=== PATIENT | male | born 1935 | race Caucasian/White ===

== ENCOUNTER 2018-06-27 10:54 | Emergency (ER) | payer MEDICARE, SELFPAY ==
[2018-06-27 10:59] VITALS: BP 178/68; PULSE 59; RESP 17; TEMP 36.7; O2SAT 96; BMI 30.6
--- NOTE | 2018-06-27 11:11 | EKG12_ITS ---
Test Reason : FALL Blood Pressure : / mmHG Vent. Rate : 058 BPM Atrial Rate : 058 BPM P-R Int : 188 ms QRS Dur : 094 ms QT Int : 434 ms P-R-T Axes : 001 053 091 degrees QTc Int : 426 ms Sinus bradycardia Minimal voltage criteria for LVH, may be normal variant Septal infarct , age undetermined Abnormal ECG Confirmed by BLAIR MILLAN, RUBEN ([id number]), visual effects editor JONY CARBONE ([id number]) on 07/02/2018 2:48:02 PM Referred By: MYRA Confirmed By:RUBEN PINTO MD
--- NOTE | 2018-06-27 11:11 | CT_ITS ---
STUDY: CT BRAIN WITHOUT CONTRAST REASON FOR EXAM: Male, 82 years old. Fall, pain RADIATION DOSAGE (If Supplied By Facility): CTDIvol = ( 44.99 ) mGy, DLP = ( 812.98 ) mGycm TECHNIQUE: Transaxial CT imaging of the brain was performed without administration of intravenous contrast material. Individualized dose optimization techniques were used for this CT. COMPARISON: November 22, 2016 FINDINGS: Ventricles: Moderate cerebral atrophy with widening of the extra-axial spaces and ventricular dilatation. White matter and Cortex: Stable scattered areas of decreased attenuation within the white matter tracts of the supratentorial brain, likely microvascular changes. There is stable encephalomalacia in the right frontal and parietal lobes consistent with old ischemia. Basal ganglia and Thalami: Normal in appearance. Brainstem: Normal in appearance. Cerebellum: Normal in appearance. Vascular: Moderate vascular calcifications. No evidence of acute hemorrhage. No evidence of acute ischemia. No evidence of mass effect. Soft tissues: Minimal soft tissue swelling and air above the orbits. Bones: Unremarkable. Sinuses: Benign retention cyst in the right frontal sinus. Minimal air in the soft tissues posterior to the maxillary sinuses is likely from intravenous injection. There is also seen in the venous structures of the cavernous sinuses. A smooth lucency in the posterolateral left orbital wall appears old. CT/Brain/Head without Contrast IMPRESSION: No acute intracranial abnormalities. Stable chronic findings. There is minimal soft tissue swelling and air above the orbits without underlying fracture. Electronically Signed: Brynn Boucher MD at 12:23 EST , Service support ,
--- NOTE | 2018-06-27 11:11 | RAD_ITS ---
STUDY: X-RAY CHEST REASON FOR EXAM: Male, 82 years old. Pain after fall TECHNIQUE: A single frontal view of the chest was obtained. COMPARISON: November 22, 2016 FINDINGS: Lines and tubes: None. Lungs: Under aerated. Minimal increased markings in both lung bases. Pleura: No demonstrated abnormality. Mediastinum/maegan: Unremarkable. Cardiovascular: Mildly enlarged cardiac silhouette. Sternotomy wires are present. An aortic valve prosthesis is present. Central vascularity unremarkable. Atherosclerotic calcifications in the thoracic aorta. Soft tissues: There are surgical clips in the right lower neck. Bones: Degenerative changes in spine and shoulders. Upper abdomen: No demonstrated abnormality. RAD/Chest 1 View (Portable) IMPRESSION: No acute abnormalities are seen in the chest. No evidence of pleural effusion or pneumothorax. No acute fractures are seen. There is mild enlargement of the cardiac silhouette without pulmonary edema. Electronically Signed: Brynn Boucher MD at 12:13 EST , Service support ,
--- NOTE | 2018-06-27 11:12 | CT_ITS ---
STUDY: CT CERVICAL SPINE WITHOUT CONTRAST REASON FOR EXAM: Male, 82 years old. Unresponsiveness following a fall. RADIATION DOSAGE (If Supplied By Facility): CTDIvol = ( 29.79 ) mGy, DLP = ( 600.66 ) mGycm TECHNIQUE: High resolution transaxial imaging was performed without contrast material. Sagittal and coronal images were reconstructed. Individualized dose optimization techniques were used for this CT. COMPARISON: None FINDINGS: Normal craniovertebral junction. There are degenerative changes of the anterior atlantoaxial articulation. Normal odontoid process. There is straightening of the normal cervical lordosis. Normal vertebral bodies and posterior osseous elements. C2-3: Facet joint osteoarthritis and hypertrophy worse on the right side. Uncovertebral arthrosis. No significant stenosis is seen. C3-4: Uncovertebral arthrosis with facet joint osteoarthritis and hypertrophy. Mild degree of bilateral neural foraminal stenosis. C4-5: Minimal anterior listhesis of C4 on C5. Facet joint osteoarthritis and hypertrophy. Uncovertebral arthrosis. No significant stenosis is seen. C5-6: Marked degree of disc space narrowing. Spondylosis. Uncovertebral arthrosis. Bilateral neural foraminal stenosis worse on the right side. C6-7: Mild degree of disc space narrowing. Atherosclerotic calcification of the carotid arteries bilaterally. CT/Spine Cervical without Contras IMPRESSION: Multilevel degenerative changes, as described above. Electronically Signed: Matt Ferreira MD at 12:28 EST , Service support ,
[2018-06-27 11:40] LABS: Prothrombin Time (Protime)PT. 68.6 SECONDS (11.7-14.9)
[2018-06-27 11:42] LABS: Absolute Lymphocyte Count 0.58 X10^3/ul (0.83-4.51); Absolute Neutrophil Count 2.5 X10^3/uL (2.0-7.7); Basophil# 0.02 X10^3/uL; Basophil% 0.5 % (0-1); Differential Indicated SCAN CRITERIA MET; Eosinophil# 0.06 X10^3/uL; Eosinophils% 1.6 % (0-5); Hematocrit 43.7 % (40-54); Hemoglobin 13.8 g/dl (13.0-16.5); Lymphocyte # 0.58 X10^3/ul (4.0); Lymphocyte % 15.4 % (19-41); Mean Corp Hgb Conc 31.6 g/gl (32-36); Mean Corpuscular Hgb 30.2 pg (27.0-32.0); Mean Corpuscular Volume 95.6 fL (80-94); Mean Platelet Vol. 9.8 fl (6.2-12.0); Monocyte% 15.9 % (0-10); Neutrophil # 2.51 X10^3/uL (2.7-7.7); Neutrophil % 66.6 % (47-70); POSITIVE COUNT NO; POSITIVE DIFFERENTIAL YES; POSITIVE MORPHOLOGY NO; Platelet Count 175 K/mm3 (150-450); RBC Distribution Width CV 14.2 % (11.6-14.6); RBC Distribution Width SD 49.7 fl (35.1-43.9); Red Blood Count 4.57 M/mm3 (4.6-6.2); White Blood Count 3.8 K/mm3 (4.4-11.0)
[2018-06-27 11:48] LABS: International Normalized Ratio 8.1
[2018-06-27] MEDS: 0.9% Normal Saline 1,000 ML 150 ML IV (11:54)
[2018-06-27 11:56] LABS: Anion Gap 6 (5-15); BUN 30 mg/dL (7-18); BUN/Creat Ratio 22.4 RATIO (10-20); Calcium,Total 8.4 mg/dL (8.5-10.1); Chloride 104 mmol/L (98-107); Creatinine, Serum 1.34 mg/dL (0.70-1.30); EST Glomerular Filtration Rate 54 mL/min (>60); Est Glom Filt Rate - Afr Amer 66 mL/min (>60); Estimated Creatinine Clearance 47.45 ml/min; Glucose 165 mg/dL (74-106); Potassium 3.6 mmol/L (3.5-5.1); Sodium Level 140 mmol/L (136-145)
[2018-06-27 11:59] LABS: Differential Comment SCANNED
[2018-06-27 12:11] VITALS: BP 175/66; PULSE 58; RESP 13; O2SAT 99
--- NOTE | 2018-06-27 12:12 | ED.VISSUMM ---
- ER Visit Summary Date of Service: 06/27/18 Chief Complaint: [Falls] History of Present Illness: The patient is a 82 M [presents the emergency department from extended care facility via EMS. Patient apparently has had 2 falls since last evening and both were unwitnessed. Patient has a history of dementia. Patient unable to give me any history. Patient apparently is on Coumadin. Patient also with history of hypertension, prior stroke, high cholesterol, and BPH.] Physical Examination: [HEENT-PERRLA, EOMI. Cranial nerves II through XII grossly intact. TMs clear. Mucous membranes moist. No adenopathy. Patient has a cervical collar in place. Mild diffuse discomfort on palpation of the C-spine. She has 2 areas on the left forehead of ecchymosis and bruising noted. No hematoma. No bony depressions. Cardiovascular-regular rate and rhythm without murmur or ectopy Lungs-clear to auscultation, chest wall stable without crepitus or subcu emphysema Abdomen-normoactive bowel sounds, soft, nontender, no rebound or rigidity, no peritoneal signs. Extremities-intact ?4, normal range of motion, normal pulses, atraumatic] Test Results: [EKG obtained showed a sinus bradycardia with a ventricular rate of 58 bpm with old septal infarct noted. CBC with differential obtained showed a white count of 3.8, hemoglobin 13.8, hematocrit 44, placed 175. Chemistries unremarkable. Glucose is 165. BUN was 30 and creatinine 1.34. INR was elevated 8.1. Troponin was less than 0.015. CT scan of the brain without contrast showed chronic involutional changes without any evidence of hemorrhage. CT of the cervical spine showed degenerative changes but no evidence of fracture.] Emergency Department Course and Treatment: [I discussed case with patient's and also spoke with Dr. Enoch Sheriff who takes care of the patient at the residential. I gave patient 5 mg of vitamin K subcu.] states that patient was on the toilet when he had an unresponsive episode this morning. Treatment Plan: [Patient will be transported back to residential.] Disposition: [Discharged in stable condition] Impression: [Frequent falls Syncope-suspect vasovagal Coumadin coagulopathy Closed head injury] This note was generated with [employer] POSation software. It may contain incorrect words, spelling, and punctuation that were not noted in review of the chart prior to signing ED Disposition - Plan for ED Patient: Chief Complaint: Fall Referrals: Enoch Sheriff MD [Primary Care Provider] -
--- NOTE | 2018-06-27 12:15 | ED.DCSUM_ITS ---
- ER Visit Summary Date of Service: 06/27/18 Chief Complaint: [Falls] History of Present Illness: The patient is a 82 M [presents the emergency department from extended care facility via EMS. Patient apparently has had 2 falls since last evening and both were unwitnessed. Patient has a history of dementia. Patient unable to give me any history. Patient apparently is on Coumadin. Patient also with history of hypertension, prior stroke, high cholesterol, and BPH.] Physical Examination: [HEENT-PERRLA, EOMI. Cranial nerves II through XII grossly intact. TMs clear. Mucous membranes moist. No adenopathy. Patient has a cervical collar in place. Mild diffuse discomfort on palpation of the C- spine. She has 2 areas on the left forehead of ecchymosis and bruising noted. No hematoma. No bony depressions. Cardiovascular-regular rate and rhythm without murmur or ectopy Lungs-clear to auscultation, chest wall stable without crepitus or subcu emphysema Abdomen-normoactive bowel sounds, soft, nontender, no rebound or rigidity, no peritoneal signs. Extremities-intact ?4, normal range of motion, normal pulses, atraumatic] Test Results: [EKG obtained showed a sinus bradycardia with a ventricular rate of 58 bpm with old septal infarct noted. CBC with differential obtained showed a white count of 3.8, hemoglobin 13.8, hematocrit 44, placed 175. Chemistries unremarkable. Glucose is 165. BUN was 30 and creatinine 1.34. INR was elevated 8.1. Troponin was less than 0.015. CT scan of the brain without contrast showed chronic involutional changes without any evidence of hemorrhage. CT of the cervical spine showed degenerative changes but no evidence of fracture.] Emergency Department Course and Treatment: [I discussed case with patient's and also spoke with Dr. Enoch Sheriff who takes care of the patient at the long-term. I gave patient 5 mg of vitamin K subcu.] states that patient was on the toilet when he had an unresponsive episode this morning. Treatment Plan: [Patient will be transported back to long-term.] Disposition: [Discharged in stable condition] Impression: [Frequent falls Syncope-suspect vasovagal Coumadin coagulopathy Closed head injury] This note was generated with cielo[employer]ation software. It may contain incorrect words, spelling, and punctuation that were not noted in review of the chart prior to signing ED Disposition - Plan for ED Patient: Chief Complaint: Fall Referrals: Enoch Sheriff MD [Primary Care Provider] -
--- NOTE | 2018-06-27 12:41 | ED.DEP ---
ED Disposition - Plan for ED Patient: Chief Complaint: Fall Instructions: ED Head Injury Closed, ED Prevention Fall, ED Fainting Unkn Cause Referrals: Enoch Sheriff MD [Primary Care Provider] - 3-5 Days Additional Instructions: Do not take Coumadin until instructed by your doctor
[2018-06-27] MEDS: Phytonadione (Vit K) 10 MG/ML Ampul 5 MG SC (12:46)
--- NOTE | 2018-06-27 12:57 | ED.RN ---
REPORT CALLED TO PRATIK AT [facility].
[2018-06-27 13:17] VITALS: BP 182/64; PULSE 57; RESP 17; O2SAT 98
--- NOTE | 2018-06-27 13:17 | ED.RN ---
IV DC'ED, CATHETER INTACT, SMALL GAUZE DRESSING PLACED. PT TRANSFERRED BACK TO [facility] BY [facility].
== END 2018-06-27 13:18 | disposition home or self-care (01) ==
LOC: ED 11:39
PROVIDERS: Emergency Provider Emergency Medicine; Family Provider Family Medicine; PCP Family Medicine
DX: R55 Syncope and collapse (principal); S00.83XA Contusion of other part of head, initial encounter; W19.XXXA Unspecified fall, initial encounter; Y93.9 Activity, unspecified; Y92.9 Unspecified place or not applicable; Y99.9 Unspecified external cause status; R79.1 Abnormal coagulation profile; T45.515A Adverse effect of anticoagulants, initial encounter; R00.1 Bradycardia, unspecified; I10 Essential (primary) hypertension; E78.00 Pure hypercholesterolemia, unspecified; N40.0 Benign prostatic hyperplasia without lower urinary tract symptoms; F03.90 Unspecified dementia, unspecified severity, without behavioral disturbance, psychotic disturbance, mood disturbance, and anxiety; Z79.82 Long term (current) use of aspirin; Z79.4 Long term (current) use of insulin; Z79.899 Other long term (current) drug therapy; Z79.01 Long term (current) use of anticoagulants; Z86.73 Personal history of transient ischemic attack (TIA), and cerebral infarction without residual deficits
CPT/HCPCS: 70450; 71045; 72125; 80048; 84484; 85025; 85610; 93005; 96360; 96372; 99285; J7030; A4216

== ENCOUNTER 2018-10-11 22:39 | Emergency (ER) | payer MEDICARE, MEDICAID, SELFPAY ==
[2018-10-11 22:41] VITALS: BP 156/60; PULSE 63; TEMP 36.8; O2SAT 97; BMI 31.8
--- NOTE | 2018-10-11 23:06 | RAD_ITS ---
STUDY: X-RAY - RIGHT RADIUS AND ULNA REASON FOR EXAM: Male, 82 years old. Fall, bruising, forearm pain TECHNIQUE: 2 view(s) of the forearm. COMPARISON: None. FINDINGS: There is soft tissue swelling of the dorsal wrist. Small triquetral fracture noted, described on wrist x-ray. The vascular calcifications are present. Normal visualized radius. Normal visualized ulna. RAD/Forearm 2 Views IMPRESSION: Normal x-ray examination of the radius and ulna. Electronically Signed: Jomar Marcus MD at 23:22 EDT , Service support ,
--- NOTE | 2018-10-11 23:06 | RAD_ITS ---
STUDY: X-RAY - RIGHT WRIST REASON FOR EXAM: Male, 82 years old. Pain, fall and bruising TECHNIQUE: 3 view(s) of the wrist were obtained. COMPARISON: None. FINDINGS: Normal visualized distal radius and ulna. Normal radiocarpal articulation. Normal distal radioulnar articulation. There is small bony density adjacent to the proximal carpal row along the dorsal wrist. There is soft tissue swelling. Normal carpal articulations. Normal carpometacarpal articulation of the thumb. Normal second through fifth carpometacarpal articulations. Normal visualized metacarpal bones. Vascular calcifications are present. RAD/Wrist min 3 Views IMPRESSION: Small triquetral fracture. Electronically Signed: Jomar Marcus MD at 23:21 EDT , Service support ,
--- NOTE | 2018-10-11 23:30 | ED.DCSUM_ITS ---
- ER Visit Summary Date of Service: 10/11/18 Chief Complaint: Right wrist fracture History of Present Illness: The patient is a 82 M who presents with a right wrist fracture. He had a fall yesterday. This was unwitnessed. He does have dementia. He was found in a seated position in front of his recliner. Family states he has had some similar falls from when he missed his recliner sitting down. He had outpatient x-rays of the hand wrist and forearm today. The wrist x-ray was read as normal. The forearm x-ray was read as a distal radial metaphyseal fracture. Physical Examination: Afebrile vitals unremarkable No distress Heart regular rate and rhythm Lungs clear Abdomen soft There is some bruising over the distal right wrist no focal bony tenderness active full range of motion normal sensation brisk cap refill Test Results: X-ray of the forearm is normal. X-ray of the wrist shows a small triquetral fracture. Emergency Department Course and Treatment: X-rays of the wrist and forearm were obtained as I do not have access to the outpatient films from earlier today and the x-ray did not provide enough information in the text description to determine most appropriate management. The forearm x-ray is actually normal and both on radiology read and my review I do not appreciate any radial fracture. Radiology did read a small triquetral fracture. Patient was given a Velcro splint and referred to orthopedics. Patient discharged. Treatment Plan: [] Disposition: Discharge Impression: 1 right wrist fracture This note was generated with [employer] dictation software. It may contain incorrect words, spelling, and punctuation that were not noted in review of the chart prior to signing ED Disposition - Plan for ED Patient: Referrals: Enoch Sheriff MD [Primary Care Provider] -
--- NOTE | 2018-10-11 23:30 | ED.DEP ---
ED Disposition - Plan for ED Patient: Instructions: ED Fx Wrist General Referrals: Enoch Sheriff MD [Primary Care Provider] - Daniel Oropeza MD [STAFF PHYSICIAN] -
[2018-10-11 23:41] VITALS: BP 157/62; PULSE 59; O2SAT 96
--- NOTE | 2018-10-11 23:58 | ED.RN ---
THIS NURSE CALLED [facility] AND GAVE THEM REPORT PRIOR TO PATIENT RETURNING.
== END 2018-10-12 00:08 | disposition home or self-care (01) ==
LOC: ED 23:39
PROVIDERS: Emergency Provider Emergency Medicine; Family Provider Family Medicine; PCP Family Medicine
DX: S62.111A Displaced fracture of triquetrum [cuneiform] bone, right wrist, initial encounter for closed fracture (principal); W19.XXXA Unspecified fall, initial encounter; Y93.9 Activity, unspecified; Y92.9 Unspecified place or not applicable; Y99.9 Unspecified external cause status; E11.9 Type 2 diabetes mellitus without complications; F03.90 Unspecified dementia, unspecified severity, without behavioral disturbance, psychotic disturbance, mood disturbance, and anxiety; Z79.01 Long term (current) use of anticoagulants; Z79.82 Long term (current) use of aspirin; Z79.4 Long term (current) use of insulin; Z79.899 Other long term (current) drug therapy
CPT/HCPCS: 73090; 73110; 99284